=== PATIENT | male | born 1950 | race Caucasian/White ===

== ENCOUNTER 2016-12-06 08:14 | Day surgery (SDC) | payer MEDICARE ==
[~2016-12-06 08:14] MED LIST: FENTANYL 250 MCG/5 ML AMP IV PRN; IV START KIT ONE; LACTATED RINGERS 1,000 ML IV SCH; LIDOCAINE Viscous 2% 15 ML UDCUP PO PRN; MIDAZOLAM HCL 5 MG/5 ML VIAL IV PRN
[2016-12-06] MEDS ORDERED: IV START KIT ONE (08:29)
[2016-12-06] MEDS ORDERED: LACTATED RINGERS 1,000 ML ONE (08:29)
[2016-12-06] MEDS ORDERED: FENTANYL 5 ML ONE (09:09)
[2016-12-06] MEDS ORDERED: LIDOCAINE Viscous 2% 15 ML UDCUP ONE (09:09)
[2016-12-06] MEDS ORDERED: MIDAZOLAM HCL 5 MG/5 ML VIAL ONE (09:09)
[2016-12-06 15:51] LABS: HELICOBACTER PYLORII DETECTION NEGATIVE (NEGATIVE)
--- NOTE | 2016-12-09 13:59 | SURGPATH ---
[facility] [address] [place] [id number] Patient Name: MALINDA ENGLISH MR#: [id number] : 1950 Gender: M Specimen #: [id number] Collected: 12/06/2016 Received: 12/07/2016 Reported: 12/09/2016 Submitting Phys: SHAW CONNOR Copy To Phys: [facility] GWENDOLYN VERA Clinical History / Pre-Operative Diagnosis: HEARTBURN; DYSPHAGIA; HISTORY OF HIATAL HERNIA; RULE OUT GASTRITIS AND ESOPHAGITIS Specimen Source / Surgical Procedure Performed: #1-ANTRAL BIOPSY; #2-ESOPHAGEAL BIOPSY AT 42 CM Interpretation: 1. ANTRAL BIOPSY: - ACTIVE ANTRAL GASTRITIS WITH REACTIVE MUCOSAL CHANGES. - NO HELICOBACTER ORGANISMS IDENTIFIED BY IMMUNOHISTOCHEMISTRY. 2. ESOPHAGEAL BIOPSY AT 42 CM: - ESOPHAGITIS WITH FEATURES SUGGESTIVE OF REFLUX. Electronically Signed Out Theresa Zaragoza M.D. Gross Description: #1 The specimen is received in a formalin filled container labeled with the patient's name and "antral biopsy". Two medrano biopsies are 0.3 and 0.4 cm. Totally embedded in cassette #1. #2 The specimen is received in a formalin filled container labeled with the patient's name and "esophageal biopsy at 42 cm". Three haynes biopsies are 0.2, 0.3 and 0.4 cm. Totally embedded in cassette #2. Jose Meier Microscopic Description: 1. Sections of the antral biopsy show active gastritis with associated mucosal congestion. There are also reactive changes of the gastric pits. There is no evidence of intestinal metaplasia or mucosal atrophy. No definitive Helicobacter organisms are seen on the routinely stained sections. Immunohistochemical staining for Helicobacter is negative. The control material stains appropriately. 2. Sections of the esophageal biopsy show fragments of squamous and columnar lined mucosa. The squamous mucosa displays prominence of the basal cell layer with focal papillary elongation and mildly increased numbers of intraepithelial inflammatory cells. Intraepithelial eosinophils are not appreciated. The columnar lined mucosa displays mildly increased chronic inflammation with reactive epithelial changes. There is no evidence of intestinal metaplasia, dysplasia or malignancy. (Analyte-specific reagents (ASR) are used in many laboratory tests necessary for standard medical care and generally do not require FDA approval. This test was developed and its performance characteristics determined by [employer]. It has not been cleared or approved by the U.S. Food and Drug Administration. [facility] is certified under the Clinical Laboratory Improvement Amendments of 1988 as qualified to perform high complexity clinical laboratory testing. All controls stain as expected.) 1: 35392, 54087 2: 52558 K29.00 K21.0
== END 2016-12-06 10:48 | disposition home or self-care (01) ==
LOC: SDC 08:14
PROVIDERS: ATTEND Internal Medicine Gastroenterology
PROC: 0DB48ZX Excision of Esophagogastric Junction, Via Natural or Artificial Opening Endoscopic, Diagnostic (ICD-10-PCS; principal; 2016-12-06)
PROC: 0DB68ZX Excision of Stomach, Via Natural or Artificial Opening Endoscopic, Diagnostic (ICD-10-PCS; 2016-12-06)
DX: K21.0 Gastro-esophageal reflux disease with esophagitis (principal); K29.70 Gastritis, unspecified, without bleeding; K29.80 Duodenitis without bleeding; I25.10 Atherosclerotic heart disease of native coronary artery without angina pectoris; E78.5 Hyperlipidemia, unspecified; N40.0 Benign prostatic hyperplasia without lower urinary tract symptoms; Z88.0 Allergy status to penicillin; Z79.82 Long term (current) use of aspirin
CPT/HCPCS: 43239; 87081; J3010; J2250; A9270; J7120